=== PATIENT | male | born 1950 | race Caucasian/White ===

== ENCOUNTER 2022-09-21 07:41 | Emergency (ER) | payer MEDICARE, OTHER ==
[~2022-09-21] VITALS: Ht 177 cm; Wt 86.0 kg
[~2022-09-21 07:41] MED LIST: ACHD5005 PO; AMLO1CAP31; AMLO5TAB2 PO; AMOX500C2 PO; AZIT-21 PO; AZIT500T2 PO; BNZ20T PO; CEFP500T4 PO; CYCL10TA9 PO; HYDR-3583 PO; HYDR-4226 PO; NAPR-243 PO; OXYC-272 PO; SULF1TAB38 PO; TADA2.5T PO; TRM50T PO
[2022-09-21] MEDS ORDERED: KETOROLAC 30 MG/ML VIAL IVP STA (08:03)
[2022-09-21] MEDS ORDERED: fentaNYL INJ 100 MCG/2 ML AMP IVP STA (08:03)
[2022-09-21] MEDS ORDERED: NS IV 1000 ML 1,000 ML IV STA (08:03)
--- NOTE | 2022-09-21 08:13 | ED General ---
General Chief Complaint: Back Problems Stated Complaint: LOWER ABD/BACK PAIN Nursing Triage Note: PT STATES LOW LT BACK THAT STARTED THIS MORNING, UNKNOWN CAUSE, VOMITED A COUPLE TIMES THIS MORNING. Source of Information: Patient Exam Limitations: No Limitations History of Present Illness Date Seen by Provider: Sep 21, 2022 Time Seen by Provider: 07:55 Initial Comments Here with complaint of left flank pain that radiates to the left groin. States its in the left back at the base of the rib margin. Onset this morning a few hours ago. He has not been able to get comfortable and does not notice any aggravating or relieving factors. Denies blood in his urine or stool. He is able to urinate. Denies fever or chills. Has had some nausea and a few episodes of vomiting this morning with the pain. He has never had anything like this before. Does have history of hypertension and diabetes and this is usually well controlled with his meds. Timing/Duration: 1-3 Hours Severity: Moderate Associated Systoms: No Chest Pain, No Cough, No Fever/Chills; Nausea/Vomiting; No Shortness of Air, No Weakness Allergies and Home Medications Allergies Coded Allergies: No Known Drug Allergies (Unverified , 05/22/09) Patient Home Medication List Home Medication List Reviewed: Yes Amlodipine Besylate (Amlodipine Besylate) 5 Mg Tablet, 5 MG PO DAILY, (Reported) Entered as Reported by: JOSE CARLOS WATT on 09/09/10922 Amoxicillin (Amoxicillin) 500 Mg Capsule, 500 MG PO TID Prescribed by: ARLETTE GERMAIN on 06/13/16 1319 Azithromycin (Zithromax Tab) 250 Mg Tab, 0 PO Z-SOUTH, (Reported) Entered as Reported by: AJAY VILLARREAL on 11/23/13 0833 Benazepril Hcl (Lotensin 20 Mg) 20 Mg Tablet, 1 EACH PO DAILY, (Reported) Entered as Reported by: JOSE CARLOS WATT on 09/09/10 09 Cefprozil (Cefzil) 500 Mg Tablet, 1 EACH PO BID Prescribed by: JOSE VELA on 11/23/13 0902 Hydrocodone Bit/Acetaminophen (Lortab 5 Mg Tablet) 1 Tab Tab, 1 TAB PO Q4H PRN for PAIN, (Reported) Entered as Reported by: AJAY VILLARREAL on 11/23/13 0833 Hydrocodone/Acetaminophen (Hydrocodone/Acetaminophen 5 MG/325 MG TAB) 1 Each Tablet, 1 EACH PO Q4H PRN for PAIN Prescribed by: ARLETTE GERMAIN on 06/13/16 131 Naproxen (Naprosyn) 500 Mg Tablet, 1 EACH PO TID PRN for PAIN Prescribed by: JOSE VELA on 11/23/13 09 Sulfamethoxazole/Trimethoprim (Bactrim Ds Tablet) 1 Each Tablet, 1 EACH PO BID Prescribed by: ARLETTE GERMAIN on 06/13/161318 Tramadol Hcl (Ultram) 50 Mg Tab, 50 MG PO Q4-6HR PRN for PAIN Prescribed by: JOSE VELA on 11/23/13 09 Review of Systems Review of Systems Constitutional: No chills, No fever EENTM: no symptoms reported Respiratory: no symptoms reported Cardiovascular: no symptoms reported Gastrointestinal: abdominal pain, nausea, vomiting Genitourinary: No dysuria, No hematuria Musculoskeletal: back pain; No muscle pain Skin: no symptoms reported Past Atwtvyb-Dgdsko-Rvbugs Hx Patient Social History Tobacco Use?: No Substance use?: No Alcohol Use?: Yes Alcohol Frequency: Once in a while Past Medical History Surgeries: Yes Abdominal Respiratory: No Cardiac: Yes High Cholesterol, Hypertension Reproductive Disorders: No Sexually Transmitted Disease: No Endocrine: Yes Diabetes, Non-Insulin dep Family Medical History Reviewed Nursing Family Hx No Pertinent Family Hx Physical Exam Vital Signs Vital Signs - First Documented 09/21/22 07:48 Temp 35.3 Pulse 67 Resp 18 B/P (MAP) 158/101 (120) Pulse Ox 98 O2 Delivery Room Air Capillary Refill : Less Than 3 Seconds Height, Weight, BMI Height: 5'10" Weight: 190lbs. oz. 86.089862ta; 27.00 BMI Method:Stated General Appearance: WD/WN, Mild Distress HEENT: PERRL/EOMI, Pharynx Normal Neck: Non Tender, Supple Respiratory: Lungs Clear, Normal Breath Sounds Cardiovascular: Regular Rate, Rhythm, No Murmur Gastrointestinal: No Organomegaly, No Pulsatile Mass, Soft, Tenderness (Noted pain to the left flank and left lower quadrant towards groin but does not seem to be elucidated during palpation) Back: No Vertebral Tenderness, CVA Tenderness (L); No CVA Tenderness (R) Extremity: Normal Range of Motion, Non Tender Neurologic/Psychiatric: Alert, Oriented x3 Skin: Normal Color, Warm/Dry Progress/Results/Core Measures Suspected Sepsis SIRS Temperature: Pulse: 67 Respiratory Rate: 18 Laboratory Tests 09/21/22 08:10: White Blood Count 9.2 Blood Pressure 158 /101 Mean: 120 Laboratory Tests 09/21/22 08:10: Creatinine 1.60H, Platelet Count 143, Total Bilirubin 0.6 Results/Orders Lab Results Laboratory Tests Test 09/21/22 08:10 09/21/22 08:55 Range/Units White Blood Count 9.2 4.3-11.0 10^3/uL Red Blood Count 5.02 4.30-5.52 10^6/uL Hemoglobin 16.1 13.3-17.7 g/dL Hematocrit 44 40-54 % Mean Corpuscular Volume 88 80-99 fL Mean Corpuscular Hemoglobin 32 25-34 pg Mean Corpuscular Hemoglobin Concent 36 32-36 g/dL Red Cell Distribution Width 12.9 10.0-14.5 % Platelet Count 143 130-400 10^3/uL Mean Platelet Volume 9.6 9.0-12.2 fL Immature Granulocyte % (Auto) 0 % Neutrophils (%) (Auto) 85 H 42-75 % Lymphocytes (%) (Auto) 10 L 12-44 % Monocytes (%) (Auto) 4 0-12 % Eosinophils (%) (Auto) 1 0-10 % Basophils (%) (Auto) 0 0-10 % Neutrophils # (Auto) 7.8 1.8-7.8 10^3/uL Lymphocytes # (Auto) 0.9 L 1.0-4.0 10^3/uL Monocytes # (Auto) 0.4 0.0-1.0 10^3/uL Eosinophils # (Auto) 0.1 0.0-0.3 10^3/uL Basophils # (Auto) 0.0 0.0-0.1 10^3/uL Immature Granulocyte # (Auto) 0.0 0.0-0.1 10^3/uL Percent Immature Platelet Fraction 2.0 0.0-7.6 % Sodium Level 142 135-145 MMOL/L Potassium Level 4.2 3.6-5.0 MMOL/L Chloride Level 105 98-107 MMOL/L Carbon Dioxide Level 24 21-32 MMOL/L Anion Gap 13 5-14 MMOL/L Blood Urea Nitrogen 25 H 7-18 MG/DL Creatinine 1.60 H 0.60-1.30 MG/DL Estimat Glomerular Filtration Rate 46 BUN/Creatinine Ratio 16 Glucose Level 188 H 70-105 MG/DL Calcium Level 9.8 8.5-10.1 MG/DL Corrected Calcium 8.5-10.1 MG/DL Total Bilirubin 0.6 0.1-1.0 MG/DL Aspartate Amino Transf (AST/SGOT) 19 5-34 U/L Alanine Aminotransferase (ALT/SGPT) 21 0-55 U/L Alkaline Phosphatase 52 40-136 U/L C-Reactive Protein High Sensitivity 0.10 0.00-0.50 MG/DL Total Protein 7.7 6.4-8.2 GM/DL Albumin 4.6 H 3.2-4.5 GM/DL Urine Color YELLOW Urine Clarity CLEAR Urine pH 6.5 5-9 Urine Specific [place] 1.015 L 1.016-1.022 Urine Protein NEGATIVE NEGATIVE Urine Glucose (UA) TRACE H NEGATIVE Urine Ketones 1+ H NEGATIVE Urine Nitrite NEGATIVE NEGATIVE Urine Bilirubin NEGATIVE NEGATIVE Urine Urobilinogen 0.2 < = 1.0 MG/DL Urine Leukocyte Esterase NEGATIVE NEGATIVE Urine RBC (Auto) 3+ H NEGATIVE Urine RBC 50-100 H /HPF Urine WBC NONE /HPF Urine Crystals NONE /LPF Urine Bacteria NEGATIVE /HPF Urine Casts NONE /LPF Urine Mucus NEGATIVE /LPF Urine Culture Indicated NO My Orders Orders - DOMINGA WASHBURN MD Cbc With Automated Diff (09/21/22 08:03) Comprehensive Metabolic Panel (09/21/22 08:03) Hs C Reactive Protein (09/21/22 08:03) Ua Culture If Indicated (09/21/22 08:03) Ns Iv 1000 Ml (Sodium Chloride 0.9%) (09/21/22 08:03) Ed Iv/Invasive Line Start (09/21/22 08:03) Fentanyl Inj (Sublimaze Injection) (09/21/22 08:03) Ketorolac Injection (Toradol Injection) (09/21/22 08:03) Ondansetron Injection (Zofran Injectio (09/21/22 08:15) Ondansetron Injection (Zofran Injectio (09/21/22 08:15) Ct Abd/Pelvis Wo(Kidney Stone) (09/21/22 09:22) Medications Given in ED Current Medications Medications Dose Ordered Sig/Payal Route Start Time Stop Time Status Last Admin Dose Admin Ondansetron HCl 4 mg ONCE ONCE IVP 09/21/22 08:15 09/21/22 08:21 DC 09/21/22 08:17 4 MG Vital Signs/I&O 09/21/22 09/21/22 09/21/22 07:48 08:17 08:18 Temp 35.3 35.3 35.3 Pulse 67 Resp 18 B/P (MAP) 158/101 (120) Pulse Ox 98 O2 Delivery Room Air Capillary Refill : Less Than 3 Seconds Blood Pressure Mean: 120 Progress Note : Progress Note Seen and evaluated. IV, labs including CBC, CMP, CRP and UA ordered. Normal saline 1 L bolus ordered as well as fentanyl 50 mcg IV and Toradol 30 mg IV. Patient was offered ondansetron initially but he declined but then became nauseated so excepted so ondansetron 4 mg IV ordered. I do anticipate CT scan of the abdomen and pelvis with concerns for kidney stone versus diverticulitis versus other abdominal pathology. This was discussed with the patient. We will await UA. Monitor patient. Differential diagnosis includes urinary tract stone, diverticulitis, intra- abdominal pathology 0922: CT abdomen pelvis without contrast ordered as patient does have blood in his urine without signs of infection. CBC is grossly normal. CMP shows normal electrolytes and LFTs with serum creatinine elevated at 1.60 and glucose 188. CRP is negative. Monitor patient. 1100: Patient is overall much improved and without pain. CT results noted. I did review CT films and there is stone in the bladder on my interpretation. See full report for details. I have reevaluated the patient and he is not having any inguinal pain. It does appear that he passed the stone to the bladder. Given that he still has stone within system, outpatient antibiotics are reasonable. I did discuss increasing fluids. I also discussed follow-up with his primary care doctor for further evaluation as well as potentially establishing care with urology as well as surgery. The inguinal hernias are not giving him problems currently although he occasionally does. We did discuss return precautions for that. I will give the name of Dr. Stoney Orellana as they are on-call today. Discharged home with return precau tions. Patient and family verbalized understanding of instructions and agreement with plan. Diagnostic Imaging Diagonstic Imaging: CT Plain Films/CT/US/NM/MRI: abdomen, pelvis Comments [facility] [place], [place] NAME: MORRO SORENSEN REC#: [id number] PT STATUS: REG ER : 1950 PHYSICIAN: DOMINGA WASHBURN MD ADMIT DATE: 09/21/22/ER Signed Date of Exam:09/21/22 CT ABD/PELVIS WO(KIDNEY STONE) PROCEDURE: CT urinary tract, rule out kidney stone. TECHNIQUE: Multiple contiguous axial images were obtained through the abdomen and pelvis without the use of intravenous contrast. Auto Exposure Controls were utilized during the CT exam to meet ALARA standards for radiation dose reduction. INDICATION: Left-sided flank pain. Vomiting. COMPARISON: None. FINDINGS: The heart is unremarkable. Small amount of subsegmental atelectasis is seen in the right lung base. No obstructing calculi are seen bilaterally. There is mild prominence of the left ureter. A calculus is seen within the dependent portion of the urinary bladder measuring 3 mm. Nonobstructing calculi are seen in the left kidney measuring up to 3 mm. There is perinephric fat stranding bilaterally, left greater than right. The liver, spleen, pancreas, and adrenal glands have a normal appearance. There is no pathologically enlarged mesenteric or retroperitoneal adenopathy. The bowel loops are nondilated. A diverticulum is seen off the 2nd portion of the duodenum measuring 2.7 x 3.0 cm. The appendix is visualized in the right lower quadrant and has a normal appearance. There is no free fluid or free air. No acute osseous abnormalities. There is calcified aortic and iliac atherosclerotic plaque without aneurysm. Bilateral inguinal hernias are seen with a loop of small bowel contained within the right inguinal hernia. There is no free air, loculated collection, or adenopathy in the pelvis. IMPRESSION: 1. Findings likely representing recently passed calculus from the left ureter with mild prominence of the left ureter, moderate perinephric fat stranding on the left, and a 3 mm calculus within the urinary bladder. Additional nonobstructing calculi are seen in the left kidney measuring up to 3 mm. 2. Bilateral inguinal hernias with a loop of small bowel contained within the right hernia. No associated bowel obstruction or inflammation. Recommend correlation with physical exam and if indicated surgical consultation to further evaluate. Dictated by: Dictated on workstation # [id number] Dict: 09/21/22 1000 Trans: 09/21/22 1021 [facility] [id number] Interpreted by: SAM BRIONES DO Electronically signed by: SAM BRIONES DO 09/21/22 1021 Reviewed: Reviewed by Me Departure Impression Primary Impression: Left ureteral stone Additional Impression: Bilateral inguinal hernia Qualified Codes: K40.20 - Bilateral inguinal hernia, without obstruction or gangrene, not specified as recurrent Disposition: HOME, SELF-CARE Condition: Improved Departure-Patient Inst. Decision time for Depature: 11:15 Referrals: DAYRON PINEDA MD (PCP/Family) Primary Care Physician SOPHIA ORELLANA BRETT D DO Patient Instructions: Kidney Stones in Adults, How to Strain Your Urine, Groin Hernias Add. Discharge Instructions: All discharge instructions reviewed with patient and/or family. Voiced understanding. Take medications as directed. Follow-up with your doctor for recheck and further evaluation. Consider follow-up with Dr. Lua or Yaakov for recheck and further evaluation of your hernias. You may also seek and follow-up with urologist of your choosing. Return for worse pain, weakness, vomiting, fever, increasing pain in the groins from the hernias or other concerns as needed. You may take Tylenol/acetaminophen 1000 mg every 6-8 hours as needed for pain. You may take ibuprofen 400 mg every 8 hours as needed for pain but make sure that you are drinking plenty of fluids with that. You need to increase your fluid intake as your kidney function is slightly off. You may discuss this with Dr. Pineda as well. Scripts Cephalexin (Cephalexin) 500 Mg Capsule 500 MG PO BID for 5 Days, #10 CAP 0 Refills Prov: DOMINGA WASHBURN MD 09/21/22 Copy Copies To 1: DAYRON PINEDA MD, TIMOTHY D MD Sep 21, 2022 08:13
[2022-09-21] MEDS ORDERED: ONDANSETRON 4 MG/2 ML (SDV) Z0FRAN ONE (08:15)
[2022-09-21] MEDS ORDERED: ONDANSETRON 4 MG/2 ML (SDV) Z0FRAN IVP ONE (08:15)
[2022-09-21 08:17] LABS: BASOPHILS % (AUTO) 0 % (0-10)
[2022-09-21 08:18] LABS: EOSINOPHILS # (AUTO) 0.1 10^3/uL (0.0-0.3); EOSINOPHILS % (AUTO) 1 % (0-10); HEMATOCRIT 44 % (40-54); HEMOGLOBIN 16.1 g/dL (13.3-17.7); LYMPHOCYTES # (AUTO) 0.9 10^3/uL (1.0-4.0); LYMPHOCYTES % (AUTO) 10 % (12-44); MEAN CORPUSCULAR HEMOGLOBIN 32 pg (25-34); MEAN CORPUSCULAR HGB CONC 36 g/dL (32-36); MEAN CORPUSCULAR VOLUME 88 fL (80-99); MEAN PLATELET VOLUME 9.6 fL (9.0-12.2); MONOCYTES # (AUTO) 0.4 10^3/uL (0.0-1.0); MONOCYTES % (AUTO) 4 % (0-12); NEUTROPHILS # (AUTO) 7.8 10^3/uL (1.8-7.8); NEUTROPHILS % (AUTO) 85 % (42-75); PLATELET COUNT 143 10^3/uL (130-400); WHITE BLOOD COUNT 9.2 10^3/uL (4.3-11.0)
[2022-09-21 08:27] LABS: ALBUMIN 4.6 GM/DL (3.2-4.5); CHLORIDE 105 MMOL/L (98-107); POTASSIUM 4.2 MMOL/L (3.6-5.0)
[2022-09-21 08:28] LABS: SODIUM 142 MMOL/L (135-145)
[2022-09-21 08:29] LABS: CALCIUM 9.8 MG/DL (8.5-10.1)
[2022-09-21 08:30] LABS: GLUCOSE 188 MG/DL (70-105); TOTAL PROTEIN 7.7 GM/DL (6.4-8.2)
[2022-09-21 08:31] LABS: CARBON DIOXIDE 24 MMOL/L (21-32)
[2022-09-21 08:32] LABS: BILIRUBIN,TOTAL 0.6 MG/DL (0.1-1.0)
[2022-09-21 08:33] LABS: ALKALINE PHOSPHATASE 52 U/L (40-136)
[2022-09-21 08:34] LABS: GFR ESTIMATED 46
[2022-09-21 08:35] LABS: BUN/CREATININE RATIO 16
[2022-09-21 08:36] LABS: ALANINE AMINOTRANSFERASE 21 U/L (0-55)
[2022-09-21 09:07] LABS: BILIRUBIN,URINE NEGATIVE (NEGATIVE); CLARITY,URINE CLEAR; COLOR,URINE YELLOW; GLUCOSE, URINE (UA) TRACE (NEGATIVE); KETONES,URINE 1+ (NEGATIVE); LEUKOCYTE ESTERASE ,URINE NEGATIVE (NEGATIVE); NITRITE,URINE NEGATIVE (NEGATIVE); PH,URINE 6.5 (5-9); PROTEIN,URINE NEGATIVE (NEGATIVE)
[2022-09-21 09:20] LABS: BACTERIA,URINE NEGATIVE /HPF; RBC,URINE 50-100 /HPF
--- NOTE | 2022-09-21 10:11 | Diagnostic Imaging Report ---
PROCEDURE: CT urinary tract, rule out kidney stone. TECHNIQUE: Multiple contiguous axial images were obtained through the abdomen and pelvis without the use of intravenous contrast. Auto Exposure Controls were utilized during the CT exam to meet ALARA standards for radiation dose reduction. INDICATION: Left-sided flank pain. Vomiting. COMPARISON: None. FINDINGS: The heart is unremarkable. Small amount of subsegmental atelectasis is seen in the right lung base. No obstructing calculi are seen bilaterally. There is mild prominence of the left ureter. A calculus is seen within the dependent portion of the urinary bladder measuring 3 mm. Nonobstructing calculi are seen in the left kidney measuring up to 3 mm. There is perinephric fat stranding bilaterally, left greater than right. The liver, spleen, pancreas, and adrenal glands have a normal appearance. There is no pathologically enlarged mesenteric or retroperitoneal adenopathy. The bowel loops are nondilated. A diverticulum is seen off the 2nd portion of the duodenum measuring 2.7 x 3.0 cm. The appendix is visualized in the right lower quadrant and has a normal appearance. There is no free fluid or free air. No acute osseous abnormalities. There is calcified aortic and iliac atherosclerotic plaque without aneurysm. Bilateral inguinal hernias are seen with a loop of small bowel contained within the right inguinal hernia. There is no free air, loculated collection, or adenopathy in the pelvis. IMPRESSION: 1. Findings likely representing recently passed calculus from the left ureter with mild prominence of the left ureter, moderate perinephric fat stranding on the left, and a 3 mm calculus within the urinary bladder. Additional nonobstructing calculi are seen in the left kidney measuring up to 3 mm. 2. Bilateral inguinal hernias with a loop of small bowel contained within the right hernia. No associated bowel obstruction or inflammation. Recommend correlation with physical exam and if indicated surgical consultation to further evaluate. Dictated by: Dictated on workstation # [id number]
[2022-09-21] MEDS ORDERED: CEPH500C PO (11:18)
[2022-09-21 11:23] VITALS: BP 132/93
== END 2022-09-21 11:22 | disposition home or self-care (01) ==
LOC: EDUNIT# 07:41 → ER 07:44
DX: N20.1 Calculus of ureter (principal); K40.20 Bilateral inguinal hernia, without obstruction or gangrene, not specified as recurrent; N21.0 Calculus in bladder; E11.9 Type 2 diabetes mellitus without complications
CPT/HCPCS: 36415; 74176; 80053; 81000; 85025; 86141